=== PATIENT | female | born 2000 ===

== ENCOUNTER 2018-06-04 19:51 | Emergency (ER) | payer OTHER ==
[2018-06-04 20:03] VITALS: BP 103/63; RESP 16; TEMP 97.6; O2SAT 99
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
[2018-06-04 20:32] VITALS: PULSE 68
--- NOTE | 2018-06-06 11:44 | CARD ---
APPROVED REPORT Date of service: 06/04/2018 EKG Measurement Heart [id number] <Conclusion> Normal sinus rhythm with sinus arrhythmia Normal ECG
== END 2018-06-04 23:34 | disposition home or self-care (01) ==
LOC: H.ER 19:51
DX: R07.89 Other chest pain (principal); V43.52XA Car driver injured in collision with other type car in traffic accident, initial encounter; Y92.89 Other specified places as the place of occurrence of the external cause
CPT/HCPCS: 93005; 96372; 99283; J1885